=== PATIENT | female | born 1980 | race Caucasian/White ===

== ENCOUNTER 2017-01-14 17:48 | Emergency (ER) | payer BC ==
[2017-01-14 18:00] VITALS: BP 125/68; PULSE 65; RESP 16; TEMP 97.4; O2SAT 98
--- NOTE | 2017-01-14 18:48 | ED PDOC ---
HPI: General Adult Chief Complaint (Provider): Headache History Per: Patient History/Exam Limitations: no limitations Onset/Duration Of Symptoms: Hrs Current Symptoms Are (Timing): Still Present Time Seen by Provider: 01/14/17 18:07 Chief Complaint (Nursing): Headache Additional Complaint(s): 36 y/o female presents to the emergency department with a complaint of a constant right-sided neck pain since 5am this morning, 01/14/2017. States she did not take any medications for pain. Reports headache worsens when she bends her head forward. Denies headache, visual changes, weakness, paresthesias, or any heavy lifting trauma. Patient drove herself to this facility. PMD: Dr. Reji Berry MD (Irene Amador) Past Medical History Reviewed: Historical Data, Nursing Documentation, Vital Signs - Medical History PMH: Asthma, Migraine - Surgical History Surgical History: No Surg Hx - Family History Family History: States: Unknown Family Hx - Social History Current smoker - smoking cessation education provided: No Alcohol: None Drugs: Denies Vital Signs: Last Vital Signs Temp 97.4 F L 01/14/17 17:57 Pulse 65 01/14/17 17:57 Resp 16 01/14/17 17:57 BP 125/68 01/14/17 17:57 Pulse Ox 98 01/14/17 19:59 - Home Medications Home Medications: Ambulatory Orders Medication Instructions Recorded Albuterol HFA [Ventolin HFA 90 2 puff IH Q6H PRN 01/04/14 mcg/actuation (8 g)] Aspirin/Acetaminophen/Caffeine 1 each PO PRN PRN 09/15/15 [Excedrin Migraine Caplet] Biotin 1 mg PO DAILY 09/15/15 Dexlansoprazole [Dexilant] 60 mg PO DAILY 09/15/15 Cyclobenzaprine [Cyclobenzaprine 10 mg PO TID PRN #15 tab 01/14/17 HCl] Naproxen [Naprosyn] 500 mg PO BID PRN #15 tablet 01/14/17 - Allergies Allergies/Adverse Reactions: Allergies Allergy/AdvReac Type Severity Reaction Status Date / Time No Known Allergies Allergy Verified 09/15/15 12:02 Review of Systems ROS Statement: Except As Marked, All Systems Reviewed And Found Negative Eyes: Negative for: Vision Change Musculoskeletal: Positive for: Neck Pain (Right-sided) Neurological: Negative for: Weakness (Paresthesias or heavy lifting trauma), Headache Physical Exam - Reviewed Nursing Documentation Reviewed: Yes Vital Signs Reviewed: Yes - Physical Exam Appears: Positive for: Non-toxic, In Acute Distress (Mild) Head Exam: Positive for: ATRAUMATIC, NORMAL INSPECTION, NORMOCEPHALIC Skin: Positive for: Normal Color, Warm, Dry Neck: Positive for: Pain On Movement Of Neck (Tenderness to the right posterior neck with some muscle spasm). Negative for: Normal Cardiovascular/Chest: Positive for: Regular Rate, Rhythm. Negative for: Murmur Respiratory: Positive for: Normal Breath Sounds. Negative for: Accessory Muscle Use, Respiratory Distress Neurologic/Psych: Positive for: Alert, business intelligence architect II-XII (Intact), Oriented (x3), Cerebellar Tests (Normal), Gait (Steady) - ECG O2 Sat by Pulse Oximetry: 98 (RA) Pulse Ox Interpretation: Normal Medical Decision Making Medical Decision Making: Time: 1814 Initial Impression: Neck spasm Initial Plan: --Urine Preg --Toradol 30 IM --Reevaluation Time: 1939 Upon provider reevaluation patient is feeling better, is medically stable, and requires no further treatment in the ED at this time. Patient will be discharged home with Rx for Cyclobenzaprine HCl 10 mg and Naprosyn 500 mg. Counseling was provided and all questions were answered regarding diagnosis and need for follow up with Dr. Reji Berry MD. There is agreement to discharge plan. Return if symptoms persist or worsen. Clinical Impression: Neck pain on right side --Cannot give sedative medications to patient because she drove herself to our facility. Scribe Attestation: Documented by Emy Mtz, acting as a scribe for Irene Amador MD. Provider Scribe Attestation: All medical record entries made by the Scribe were at my direction and personally dictated by me. I have reviewed the chart and agree that the record accurately reflects my personal performance of the history, physical exam, medical decision making, and the department course for this patient. I have also personally directed, reviewed, and agree with the discharge instructions and disposition. (Irene Amador) Disposition - Patient ED Disposition Is Patient to be Admitted: No Counseled Patient/Family Regarding: Diagnosis, Need For Followup - Disposition Disposition: Routine/Home Disposition Time: 19:40 - Clinical Impression Clinical Impression: Neck pain on right side - Disposition Referrals: Reji Berry MD [Family Provider] - Condition: STABLE Prescriptions: Cyclobenzaprine [Cyclobenzaprine HCl] 10 mg PO TID PRN #15 tab PRN Reason: Pain Naproxen [Naprosyn] 500 mg PO BID PRN #15 tablet PRN Reason: Pain, Moderate (4-7) Instructions: Musculoskeletal Pain (ED) Forms: [employer] ([place])
== END 2017-01-14 20:15 | disposition home or self-care (01) ==
LOC: H.ER 17:48
DX: R51 Headache (principal); M54.2 Cervicalgia
CPT/HCPCS: 81025; 96372; 99285; J1885